=== PATIENT | female | born 1950 | race Caucasian/White ===

== ENCOUNTER → 2017-10-27 08:23 | Outpatient (CLI) | payer MEDICARE, SELFPAY ==
[2017-10-27 09:52] LABS: Alanine Aminotransferase 25 U/L (12-78); Albumin Level 3.6 gm/dL (3.4-5.0); Albumin/Globulin Ratio 1.2 (1.1-1.8); Alkaline Phosphatase 48 U/L (46-116); Anion Gap 13.3 mEq/L (5-15); Aspartate Amino Transferase 24 U/L (15-37); Bilirubin,Total 0.5 mg/dL (0.2-1.0); Blood Urea Nitrogen 21 mg/dL (7-18); Calcium 8.8 mg/dL (8.5-10.1); Carbon Dioxide 26 mmol/L (21.0-32.0); Chloride 106 mmol/L (98-107); Creatinine,Serum 0.82 mg/dL (0.55-1.02); Estimated Glomerular Filt Rate 69 ml/min (>60); GFR (African American) 84 ML/MIN (>60); Glucose 94 mg/dL (74-106); Potassium 4.3 mmoL/L (3.5-5.1); Sodium 141 mmol/L (136-145); Thyroid Stimulating Hormone 2.49 uIU/ml (0.358-3.740); Total Protein,Serum 6.6 gm/dL (6.4-8.2)
== END ==
PROVIDERS: Visit Provider Nurse Practitioner Family
DX: E03.9 Hypothyroidism, unspecified (principal); E78.5 Hyperlipidemia, unspecified
CPT/HCPCS: 36415; 80053; 84439; 84443

== ENCOUNTER → 2017-11-01 09:21 | Outpatient (CLI) | payer MEDICARE, SELFPAY ==
--- NOTE | 2017-11-01 09:29 | US_ITS ---
US soft tissue head and neck CLINICAL INDICATION: Left-sided neck mass ITS.REASON: NECK MASS ORDERING PHYSICIAN: William Tapia MD PATIENT AGE: 67 years Comparison: None FINDINGS: Shunt performed of the palpable abnormality in the left side of the neck. This corresponds to the carotid artery. Cannot determine if the artery is aneurysmal based on images submitted. CT angiogram of the neck may be of further value if clinically warranted. Incidental note made of a 6 mm mixed hypoechoic nodule in the left lobe of the thyroid gland. A 7 mm mixed hypoechoic nodules present on the right. IMPRESSION: 1. Palpable abnormality of the left neck corresponds to the carotid artery. Cannot determine if the artery is aneurysmal base images submitted. ET angiogram may be of further value if clinically warranted. 2. Small bilateral thyroid nodules
--- NOTE | 2017-11-01 09:29 | MM_ITS ---
MM Dig screening mamm BI w/CAD CAD Screening ORDERING PHYSICIAN : William Tapia MD PATIENT AGE: 67 years GENDER: Female COMPARISON: Previous mammograms: October 2016, April 2015, March INDICATION: No hormones. No new complaints. Noncontributory family history. 67-year-old TECHNIQUE: Standard CC and MLO images were obtained. R2 CAD reviewed. FINDINGS: Prior films are very helpful in this patient again showing the separate islands of fibroglandular tissue at the deep axillary right and left breast but these is been present on multiple studies even those dating back to 2010 . Asymmetric breast parenchymal pattern but no significant new areas of concern RIGHT BREAST:No significant new findings. Again the dense glandular tissue the retroareolar region with a separate island breast parenchymal tissue towards the deep right axillary tail right breast is seen and unchanged. Scattered areas of stable density appear stable as well. LEFT BREAST:No significant new findings. Again similar architectural pattern with a smaller island of glandular tissue at the superior left breast 12:00 unchanged as prior studies. IMPRESSION: -- Stable bilateral mammogram. Bilateral follow-up in one year Asymmetric areas of breast density appear long-standing stable. BI-RADS Category: 2 Benign Finding(s) RECOMMENDED FOLLOW-UP: 1YR - 1 YEAR FOLLOW-UP (A letter has been sent to the patient regarding results of the study.)
--- NOTE | 2017-11-01 09:30 | XR_ITS ---
XR DEXA axial skeleton HISTORY: ITS.REASON: OSTEOPAROSIS ORDERING PHYSICIAN: William Tapia MD PATIENT AGE: 67 years FINDINGS: The BMD measured at the left femoral neck is 0.701 g/cm squared with a T score of -2.4. This is considered Osteopenic according to the World Health Organization criteria. Fracture risk is Moderate. Treatment is advised.. The L1 L4 density as a T score -1.8. Bone density lumbar spine is unchanged and the density of the hips has increased by 4.5% compared 12/15/2015. 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 Treatment recommended. Suggest follow-up exam October 2018
== END ==
PROVIDERS: Family Provider Family Medicine; PCP Nurse Practitioner Family; Visit Provider Family Medicine
DX: Z12.31 Encounter for screening mammogram for malignant neoplasm of breast (principal); M81.0 Age-related osteoporosis without current pathological fracture
CPT/HCPCS: 76536; 77067; 77080

== ENCOUNTER 2017-11-16 09:20 | Outpatient (CLI) | payer MEDICARE, SELFPAY ==
[2017-11-16 09:45] VITALS: BP 129/52; PULSE 85; RESP 18; O2SAT 100
== END 2017-11-16 10:10 | disposition home or self-care (01) ==
LOC: INF 09:31
PROVIDERS: Family Provider Family Medicine; PCP Nurse Practitioner Family; Visit Provider Family Medicine
DX: M81.0 Age-related osteoporosis without current pathological fracture (principal)
CPT/HCPCS: 96372; J0897

== ENCOUNTER → 2017-11-24 07:14 | Outpatient (CLI) | payer MEDICARE, SELFPAY ==
[2017-11-24 09:22] LABS: Blood Urea Nitrogen 19 mg/dL (7-18); Creatinine,Serum 0.78 mg/dL (0.55-1.02); Estimated Glomerular Filt Rate 73 ml/min (>60); GFR (African American) 89 ML/MIN (>60)
== END ==
PROVIDERS: Visit Provider Nurse Practitioner Family
DX: E03.9 Hypothyroidism, unspecified (principal); E78.5 Hyperlipidemia, unspecified
CPT/HCPCS: 36415; 82565; 84520

== ENCOUNTER → 2017-11-28 12:35 | Outpatient (CLI) | payer MEDICARE, SELFPAY ==
--- NOTE | 2017-11-28 12:40 | CT_ITS ---
CT angio neck INDICATION: Palpable abnormality in the left neck, abnormal ultrasound showing possible aneurysm or vascular abnormality ITS.REASON: ANEURYSM OF CAROTID ARTERY ORDERING PHYSICIAN: William Tapia MD PATIENT AGE: 67 years COMPARISON: 11/01/2017 TECHNIQUE: CT angiogram protocol performed Axial images are obtained following the intravenous administration of 100 mL Isovue-370 . Sagittal and coronal reformatted images are reviewed as well. All CT scans at the facility use one or more dose reduction, viz: automated exposure control; ma/kV adjustment per patient size (including targeted exams where dose is matched to indication; i.e. head); or iterative reconstruction technique. FINDINGS: There is no evidence of carotid aneurysm or dissection. There is some tortuosity of the left carotid at the bifurcation and of the proximal internal carotid artery . There is lateral positioning of the left jugular vein adjacent to the tortuous carotid which could also account for the sonographic abnormality.. There is also mild prominence of the left external jugular vein which could also account for the sonographic adenopathy. However, no carotid aneurysm is evident. No soft tissue mass. No adenopathy. Prominent artifact is present from the patient's dental work. No carotid stenosis. IMPRESSION: 1. No evidence of carotid artery aneurysm. 2. There is tortuosity of the left carotid bifurcation and proximal internal carotid artery with lateral positioning of the internal jugular vein in relationship to the carotid and prominent left external jugular vein. All these findings may contribute to the abnormality noted on the ultrasound. 3. No adenopathy or neck mass apparent IMPRESSION:
== END ==
PROVIDERS: Family Provider Family Medicine; PCP Nurse Practitioner Family; Visit Provider Family Medicine
DX: I72.0 Aneurysm of carotid artery (principal)
CPT/HCPCS: 70498; Q9967

== ENCOUNTER 2018-05-28 08:02 | Outpatient (CLI) | payer MEDICARE, SELFPAY ==
[2018-05-28 08:21] VITALS: BP 121/60; PULSE 106; RESP 20
== END 2018-05-28 08:44 | disposition home or self-care (01) ==
LOC: INF 08:03
PROVIDERS: PCP Family Medicine; Visit Provider Nurse Practitioner Family
DX: M81.0 Age-related osteoporosis without current pathological fracture (principal)
CPT/HCPCS: 96372; J0897

== ENCOUNTER → 2018-09-05 09:51 | Outpatient (CLI) | payer MEDICARE, SELFPAY ==
--- NOTE | 2018-09-05 10:02 | PC.NURSE ---
spoke with patient at md request and asked her to call him at the office this morning.
== END ==
PROVIDERS: PCP Family Medicine; Visit Provider Physician Assistant
DX: R00.2 Palpitations (principal)
CPT/HCPCS: 93225; 93226

== ENCOUNTER → 2018-09-11 06:10 | Outpatient (CLI) | payer MEDICARE, SELFPAY ==
--- NOTE | 2018-09-11 06:17 | NM_ITS ---
SPECT MYOCARDIAL PERFUSION SCAN, REST AND STRESS: EXERCISE STRESS: [facility] REVIEW QGS EF AND WALL MOTION EVALUATION: QPS - PERFUSION EVALUATION: HISTORY: CHEST HEAVINESS, PALPITATIONS PROCEDURE: Rest imaging performed after administration of10.12 millicuries Tc MIBI. Dose administered at6:30 a.m., with imaging thereafter. Stress imaging was then performed following8 minutes 45 seconds of exercise stress. The patient achieved a heart [id number] with projected heart rate of142 . Resting BP139/76 with stress 142/75. At maximum exercise stress,31.6 millicuries Tc MIBI administered at8:15AM a.m. with minutes thereafter. FINDINGS: Perfusion Evaluation: The single slice spect images as well as the [facility] bull's-eye data summary were reviewed. Wall Motion and Ejection Fraction Evaluation: Gated SPECT review and analysis used to evaluate these features. There is a 69 % left ventricular ejection fraction. There seems to be good wall motion Stress images reveal decreased activity in a portion of the anterior wall while rest images reveal moderate to severely reduced activity in the anterior and apical wall as well as septum IMPRESSION: High risk abnormal stress test with reverse redistribution in the anterior apical and septal with normal ejection fraction normal wall motion
== END ==
PROVIDERS: PCP Family Medicine; Visit Provider Physician Assistant
DX: R07.89 Other chest pain (principal); R00.2 Palpitations
CPT/HCPCS: 78452; 93017; A9502

== ENCOUNTER → 2018-09-14 11:32 | Outpatient (CLI) | payer MEDICARE, SELFPAY ==
--- NOTE | 2018-09-14 11:39 | CT_ITS ---
CT heart w calcium score Ordering Physician: Lazaro Marie MD Patient Age: 68 years: Female HISTORY: ITS.REASON: chest pain COMPARISON: None Technique: All CT scans at this facility use one or more dose reduction techniques, viz.: automated exposure control, ma/kV adjustment per patient size (including targeted exams where dose is matched to indication, i.e. head) or iterative reconstruction technique. FINDINGS: The calcium score data sheet is available for viewing in our PACS system Coronary calcium score is 324 indicating a moderate plaque burden with high cardiovascular disease risk. . Highlights of individual vessel scoring below : . Left Main Coronary artery = 308 LAD scoring = 0 Left circumflex = 16 Right coronary artery = 0 PDA = 0 Limited images submitted of the chest for the calcium score shows no additional significant findings. There are some calcified nodes at the mediastinum and left blaze from old renal this disease. Ascending aorta measures normal size 3.3 cm diameter ========IMPRESSION: TOTAL CALCIUM SCORE 324. (would note that that of this total score the left main coronary artery score = 308)
== END ==
PROVIDERS: PCP Family Medicine; Visit Provider Internal Medicine Cardiovascular Disease
DX: E78.5 Hyperlipidemia, unspecified (principal); I20.9 Angina pectoris, unspecified; K21.9 Gastro-esophageal reflux disease without esophagitis; Q21.1 Atrial septal defect; R00.2 Palpitations; R06.83 Snoring; R94.30 Abnormal result of cardiovascular function study, unspecified
CPT/HCPCS: 75571

== ENCOUNTER → 2018-09-26 12:35 | Outpatient (CLI) | payer MEDICARE, SELFPAY | PROVIDERS: PCP Family Medicine; Visit Provider Internal Medicine Cardiovascular Disease | DX: R00.2 Palpitations (principal) | CPT/HCPCS: 93306 ==

== ENCOUNTER 2018-11-27 08:18 | Outpatient (CLI) | payer MEDICARE, SELFPAY ==
--- NOTE | 2018-11-27 08:22 | MM_ITS ---
MM Dig screening mamm BI w/CAD ORDERING PHYSICIAN : William Tapia MD PATIENT AGE: 68 years GENDER: Female COMPARISON: Multiple prior studies utilized: January 2011, February 2012, December 2009. More recent studies October 2017, 2016, March 2014 INDICATION: Routine screening mammogram no hormones no new complaints noncontributory family history. TECHNIQUE: Standard CC and MLO images were obtained. R2 CAD reviewed. Also right axillary cc view included FINDINGS: . The breasts demonstrate asymmetry with islands of asymmetric heterogeneous glandular elements. The multiple prior studies are helpful to supporting stability of this pattern. Mammography of decreased sensitivity in the areas of denser breast tissue in the retroareolar regions bilaterally. However this pattern is remain stable and I see no change since previous studies RIGHT BREAST:No significant new areas of concern. Again the separate island of glandular tissue at the deep axillary tail the right breast is noted is a long-standing stable feature dating back to at least 2009 The moderately dense breast tissue the retroareolar region extending towards upper-outer quadrant shows no significant new findings and appear stable LEFT BREAST:No significant new areas of concern. Again the smaller island of glandular tissue new 12 o'clock position is observed and is not changed appreciably since multiple previous studies. No new areas of concern on the left here or elsewhere- Moderately dense fibroglandular elements retroareolar region unchanged. IMPRESSION: .......... Stable mammogram No new areas of significant concern. Stable asymmetric breast pattern Included stable islands of asymmetric breast tissue bilaterally . Bilateral follow-up in one year recommended BI-RADS Category: 2 Benign Finding(s) RECOMMENDED FOLLOW-UP: 1YR 1 YEAR FOLLOW-UP (A letter has been sent to the patient regarding results of the study.)
[2018-11-27 09:10] VITALS: BP 107/64; PULSE 79; RESP 18; TEMP 36.7; O2SAT 97
== END 2018-11-27 09:30 | disposition home or self-care (01) ==
LOC: RAD 08:52 → INF 08:52
PROVIDERS: PCP Family Medicine; Visit Provider Family Medicine
DX: Z12.31 Encounter for screening mammogram for malignant neoplasm of breast (principal); M81.0 Age-related osteoporosis without current pathological fracture
CPT/HCPCS: 77067; 96372; J0897

== ENCOUNTER → 2019-03-06 10:28 | Outpatient (CLI) | payer MEDICARE, SELFPAY ==
--- NOTE | 2019-03-06 10:34 | XR_ITS ---
PROCEDURE: XR HIP RT 2-3V W/PELVIS CLINICAL INDICATION: RT HIP PAIN COMPARISON: PELAP PELVIS AP ONLY from 02/26/[id number] abdomen pelvis wo con from 09/05/2018 FINDINGS: There are posttraumatic changes of the right hemipelvis with acetabular protrusion toe and osteoarthritic changes of the right hip. These findings are not significantly changed compared to the previous exam. IMPRESSION: Chronic posttraumatic changes, no acute finding Dictated by: Salvatore Ashton MD 03/06/2019 12:42 Electronically signed by Salvatore Ashton MD in [place] 03/06/2019 12:42
== END ==
PROVIDERS: PCP Family Medicine; Visit Provider Family Medicine
DX: M25.551 Pain in right hip (principal)
CPT/HCPCS: 73502

== ENCOUNTER → 2019-03-14 07:39 | Outpatient (CLI) | payer MEDICARE, SELFPAY ==
[2019-03-14 10:05] LABS: Bilirubin,Direct 0.1 mg/dL (0.0-0.2)
[2019-03-14 10:14] LABS: Alanine Aminotransferase 24 U/L (12-78); Albumin Level 3.6 gm/dL (3.4-5.0); Albumin/Globulin Ratio 1.2 (1.1-1.8); Alkaline Phosphatase 46 U/L (46-116); Anion Gap 12.4 mEq/L (5-15); Aspartate Amino Transferase 19 U/L (15-37); Bilirubin,Total 0.5 mg/dL (0.2-1.0); Blood Urea Nitrogen 16 mg/dL (7-18); Calcium 8.7 mg/dL (8.5-10.1); Carbon Dioxide 29 mmol/L (21.0-32.0); Chloride 105 mmol/L (98-107); Chol/HDL Ratio 2.8 (1-3.5); Cholesterol 253 mg/dL (140-200); Creatinine,Serum 0.72 mg/dL (0.55-1.02); Estimated Glomerular Filt Rate 80 ml/min (>60); GFR (African American) 97 ML/MIN (>60); Globulin 3.1 gm/dl (1.3-3.2); Glucose 89 mg/dL (74-106); HDL Cholesterol 89 mg/dL (29-89); LDL Cholesterol 151 mg/dL (0-130); Potassium 4.4 mmoL/L (3.5-5.1); Sodium 142 mmol/L (136-145); Thyroid Stimulating Hormone 2.12 uIU/ml (0.358-3.740); Total Protein,Serum 6.7 gm/dL (6.4-8.2); Triglycerides 63 mg/dL (30-200); VLDL Cholesterol 13 mg/dL (0-40)
== END ==
PROVIDERS: Internal Medicine Cardiovascular Disease; Visit Provider Nurse Practitioner Family
DX: E78.5 Hyperlipidemia, unspecified (principal)
CPT/HCPCS: 36415; 80053; 80061; 82248; 84443

== ENCOUNTER 2019-05-29 08:00 | Outpatient (CLI) | payer MEDICARE, SELFPAY ==
[2019-05-29 08:25] VITALS: BP 117/76; PULSE 103; RESP 18; O2SAT 96
== END 2019-05-29 08:40 | disposition home or self-care (01) ==
LOC: INF 08:12
PROVIDERS: Visit Provider Nurse Practitioner Family
DX: M81.0 Age-related osteoporosis without current pathological fracture (principal)
CPT/HCPCS: 96372; J0897

== ENCOUNTER → 2019-06-27 08:06 | Outpatient (CLI) | payer MEDICARE, SELFPAY ==
[2019-06-27 09:52] LABS: Alanine Aminotransferase 21 U/L (12-78); Albumin Level 3.6 gm/dL (3.4-5.0); Alkaline Phosphatase 41 U/L (46-116); Aspartate Amino Transferase 22 U/L (15-37); Bilirubin,Direct 0.1 mg/dL (0.0-0.2); Bilirubin,Indirect 0.4 mg/dL (0.0-0.9); Bilirubin,Total 0.5 mg/dL (0.2-1.0); Chol/HDL Ratio 2.6 (1-3.5); Cholesterol 228 mg/dL (140-200); HDL Cholesterol 89 mg/dL (29-89); LDL Cholesterol 130 mg/dL (0-130); Total Protein,Serum 6.5 gm/dL (6.4-8.2); Triglycerides 44 mg/dL (30-200); VLDL Cholesterol 9 mg/dL (0-40)
== END ==
PROVIDERS: Visit Provider Internal Medicine Cardiovascular Disease
DX: I11.9 Hypertensive heart disease without heart failure (principal); I25.10 Atherosclerotic heart disease of native coronary artery without angina pectoris; Z79.899 Other long term (current) drug therapy
CPT/HCPCS: 36415; 80061; 80076

== ENCOUNTER → 2019-11-28 08:49 | Outpatient (CLI) | payer MEDICARE, SELFPAY ==
[2019-11-28 10:43] LABS: Coronavirus 19 IgG Antibody Negative (Negative); Coronavirus 19 IgM Antibody Negative (Negative)
== END ==
PROVIDERS: Visit Provider Internal Medicine Gastroenterology
DX: Z01.818 Encounter for other preprocedural examination (principal)
CPT/HCPCS: 36415; 86328

== ENCOUNTER 2019-11-29 07:24 | Day surgery (SDC) | payer MEDICARE, SELFPAY ==
[2019-11-25 13:10] VITALS: BMI 21.7
[2019-11-29] VITALS (7 sets, daily range): BP systolic 88–150; BP diastolic 51–82; PULSE 73–93; RESP 18; TEMP 36.1–36.8; O2SAT 96–100
--- NOTE | 2019-11-29 08:50 | P.PN_ITS ---
[facility] Anesthesia Checklist - Patient Identification Patient Identification: Arm Band, Verbal (Name & ) - Structural Data Admitted From: Home Planned Operative Procedure/s: Colonoscopy Consent for Planned Operative Procedure(s) Verified: Yes Verified Documents: Surgical Consent, History and Physical - NPO Status Verified Time NPO: 00:00 - Chart Verification Results Verified: None - Additional verifications Anesthesia Reactions: No - Airway Assessment C-Spine Mobility Assessed: Yes TMJ Mobility Assessed: Yes Dentition: Good Dentition - Neurological Assessment Level of Consciousness: Awake, Alert, Appropriate, Follows Commands Hx Seizures: No Numbness or tingling in extremities: No - Anesthesia Plan Anesthesia Risk discussed: Yes Anesthesia Plan: Verified ASA Class: II Anesthesia Type: MAC [facility] History I have reviewed the patient's past medical history: Yes Medical History: Reports:: Coronary Artery Disease, Gastroesophageal Reflux Disease(GERD), Hyperlipidemia, Hypertension, Palpitations Denies:: Cancer, Diabetes Mellitus Type 1, Diabetes Mellitus Type 2, Internal Pacemaker, MRSA, Seizures *Have you ever received a pneumonia vaccine?: Yes *Have you received a flu vaccine this season?: Yes Other Medical History: Reports: Hypothyroidism Anesthesia experience/problems:: no prior complications Laterality Cases: Left: Breast Biopsy Other Surgeries: Yes: Cardiac Catheterization, Cholecystectomy, Hysterectomy- Partial. No: Pacemaker Amputation: No Fractures: No - *Social History Educational Level: Completed College Smoking Status: Never smoker Alcohol Intake: current Alcohol Intake Frequency:: a few times a month Substance Use Type: denies use *Occupational Status:: retired Housing: house Household Members: spouse *Travel in the last 8 weeks: None Family Hx:: No significant family history
--- NOTE | 2019-11-29 08:58 | HMH.PROC ---
[facility] Procedure Note Procedure Note:: Colonoscopy Procedure Report: Colonoscopy with cold snare polypectomy Endoscopist: Ricky Cast II, MD Referring physician: Kristi ALFORD/Noé Tapia MD Date of Procedure: November 29, 2019 Equipment: Olympus 180 variable stiffness pediatric colonoscope Sedation: MAC sedation Indication: Mrs. Romero is a 69-year-old female who is here for follow-up screening/surveillance colonoscopy. She did have a colonoscopy in February 2013 (Dr. Domingo Luke M.D.) at which time a single polyp (4 mm tubular adenoma of descending colon) was removed. She reports no abdominal pain, weight loss, change in her bowel habits or rectal bleeding. She reports no family history of colon cancer. Procedure: Prior to the procedure, a history and physical exam was performed, and patient's medications and allergies were reviewed. The risks, benefits and alternatives of the sedation and procedure were discussed with the patient. All questions were answered and informed consent was obtained. The patient was brought to the procedure room. Patient identification and proposed procedure were verified by the physician and the nurse. The patient was placed in a left lateral decubitus position and the scope was passed under direct vision. Throughout the procedure, the patient's blood pressure, pulse, and oxygen saturations were monitored continuously. The colonoscopy was accomplished without difficulty. The patient tolerated the procedure well. Findings: On digital rectal examination there was normal rectal tone. There were no external hemorrhoids. The colonoscope was introduced through the anal canal to the rectum and advanced to the cecum. The ileocecal valve and appendiceal orifice were identified. The scope was advanced a short distance into the ileum which appeared grossly normal. The scope was then withdrawn into the colon. The cecum was normal. There were 3 colon polyps (ascending x2 (3 and 5 mm) and transverse x1 (4 mm)) that were removed via cold snare polypectomy. There were scattered extensive diverticuli throughout the colon but more predominantly in the descending and sigmoid colon (LEFT colon). The rectum itself was normal. Upon retroflexion within the rectum there were grade 1-2 internal hemorrhoids. The preparation was excellent throughout with [place] Preparation Score of 9. The cecal time was 12 minutes. Impression: 1. Diminutive colonic polyps x3 2. Pandiverticulosis 3. Grade 1-2 internal hemorrhoids Plan: I will follow up the polyp pathology and recommend repeat colonoscopy again in 5-7 years based upon the polyp histology. I would encourage fiber supplementation on a long-term daily maintenance basis.
== END 2019-11-29 09:45 | disposition home or self-care (01) ==
LOC: OUTP 07:25
PROVIDERS: PCP Nurse Practitioner Family; Visit Provider Internal Medicine Gastroenterology
PROC: 0DJD8ZZ Inspection of Lower Intestinal Tract, Via Natural or Artificial Opening Endoscopic (ICD-10-PCS; CPT 45378; principal; 2019-11-29 08:30)
DX: Z12.11 Encounter for screening for malignant neoplasm of colon (principal); Z86.010 Personal history of colon polyps; K63.5 Polyp of colon; K57.30 Diverticulosis of large intestine without perforation or abscess without bleeding; K64.0 First degree hemorrhoids; I10 Essential (primary) hypertension; E78.5 Hyperlipidemia, unspecified; E03.9 Hypothyroidism, unspecified; K21.9 Gastro-esophageal reflux disease without esophagitis; Z90.710 Acquired absence of both cervix and uterus; Z88.8 Allergy status to other drugs, medicaments and biological substances; Z79.899 Other long term (current) drug therapy; Z79.82 Long term (current) use of aspirin
CPT/HCPCS: 45385; 88305

== ENCOUNTER → 2019-12-02 14:20 | Outpatient (CLI) | payer MEDICARE, SELFPAY ==
[2019-12-02 14:11] VITALS: BP 136/79; PULSE 75; RESP 18; TEMP 36.6; O2SAT 96
--- NOTE | 2019-12-02 14:28 | MM_ITS ---
PROCEDURE: MM DIG SCREENING MAMM BI W/CAD Digital Breast Tomosynthesis Included CLINICAL INDICATION: SCREENING There is no personal or family history of breast cancer. There has been a previous biopsy left breast for benign disease. COMPARISON: [facility] DIG MAMM-SCREEN [facility] W/CAD from 10/25/2016 [facility] MM Dig screening mamm BI w/CAD from 11/01/2017 DIG MAMM-SCREEN [facility] from 11/27/2018 TECHNIQUE: Standard CC and MLO images and 3D Tomosynthesis was obtained. R2 CAD reviewed. FINDINGS: Again noted are scattered asymmetric glandular elements in both breasts which appear to be stable in particular the glandular densities in the axillary tail right breast are most prominent but are stable compared to the previous studies. There is a mole marker right breast, there couple of benign-appearing calcifications in the subareolar region as well. The other area of asymmetric glandular tissue is seen deep within the central portion left breast and this is stable as well. There is no suspicious lesion and no suspicious microcalcifications. IMPRESSION: Stable exam with no suspicious lesions seen BI-RAD Category: 2 Benign Finding(s) FOLLOW-UP: 1YR 1 Year Follow-up (A letter has been sent to the patient regarding results of the study.) Dictated by: Dr. Aris Real MD 12/03/2019 14:[address] Aris Real MD in [place] 12/03/2019 14:38
--- NOTE | 2019-12-02 14:29 | XR_ITS ---
PROCEDURE: XR DEXA AXIAL SKELETON CLINICAL HISTORY: OSTEOPOROSIS COMPARISON: No exams were available for comparison FINDINGS: 1/3 radius density is 0.581 grams/centimeters sq with a T-score -1.9 left femoral neck density is 0.613 grams/centimeter sq with a T-score -2.1 L1-L4 density is 0.888 grams/centimeter sq with T-score -1.4 IMPRESSION: Osteopenia with moderate fracture risk. Treatment advised. Suggest follow-up exam in 2 years Dictated by: Salvatore Ashton MD 12/02/2019 19:21 Electronically signed by Salvatore Ashton MD in [place] 12/02/2019 19:21
== END | disposition home or self-care (01) ==
LOC: INF 14:20
PROVIDERS: PCP Family Medicine; Visit Provider Nurse Practitioner Family
DX: M81.0 Age-related osteoporosis without current pathological fracture (principal); Z12.31 Encounter for screening mammogram for malignant neoplasm of breast
CPT/HCPCS: 77063; 77067; 77080; 96372; J0897

== ENCOUNTER 2020-06-02 08:35 | Outpatient (CLI) | payer MEDICARE, SELFPAY ==
[2020-06-02 08:46] VITALS: BP 136/67; PULSE 76; RESP 18; TEMP 36.6; O2SAT 99
== END 2020-06-02 09:19 | disposition home or self-care (01) ==
LOC: INF 08:35
PROVIDERS: Visit Provider Nurse Practitioner Family
DX: M81.0 Age-related osteoporosis without current pathological fracture (principal)
CPT/HCPCS: 96372; J0897

== ENCOUNTER → 2020-07-20 09:00 | Outpatient (CLI) | payer MEDICARE, SELFPAY ==
[2020-07-20 09:55] LABS: Alanine Aminotransferase 17 U/L (12-78); Albumin Level 4.7 g/dl (3.5-5.0); Alkaline Phosphatase 52 U/L (38-126); Anion Gap 10.3 mEq/L (5-15); Aspartate Amino Transferase 27 U/L (14-36); Bilirubin,Direct 0.2 mg/dl (0.0-0.4); Bilirubin,Indirect 0.4 mg/dL (0.0-0.9); Bilirubin,Total 0.6 mg/dl (0.2-1.3); Bilirubin,Unconjugated 0.4 mg/dL (0.0-1.1); Blood Urea Nitrogen 18 mg/dl (7-17); Calcium 9.9 mg/dl (8.4-10.2); Carbon Dioxide 32 mmol/L (22.0-30.0); Chloride 104 mmol/L (98-107); Chol/HDL Ratio 2.5 (1-3.5); Cholesterol 241 mg/dl (140-200); Estimated Glomerular Filt Rate 62 ml/min (>60); GFR (African American) 75 ML/MIN (>60); Glucose 109 mg/dl (74-100); HDL Cholesterol 98 mg/dl (40-60); Potassium 4.3 mmoL/L (3.5-5.1); Sodium 142 mmol/L (136-145); Total Protein,Serum 7.8 g/dl (6.3-8.2); Triglycerides 61 mg/dl (30-150); VLDL Cholesterol 12 mg/dL (0-40)
[2020-07-20 10:06] LABS: Direct LDL Cholesterol 114.52 mg/dL (100-129)
== END ==
PROVIDERS: Visit Provider Physician Assistant
DX: E78.2 Mixed hyperlipidemia (principal); I11.9 Hypertensive heart disease without heart failure; I25.10 Atherosclerotic heart disease of native coronary artery without angina pectoris
CPT/HCPCS: 36415; 80048; 80061; 80076

== ENCOUNTER 2020-12-03 09:58 | Outpatient (CLI) | payer MEDICARE, SELFPAY ==
[2020-12-03 10:25] VITALS: BP 129/77; PULSE 71; RESP 17; TEMP 36.8; O2SAT 100
--- NOTE | 2020-12-03 10:37 | MM_ITS ---
PROCEDURE INFORMATION: Exam: MG Screening 3D Mammography Exam date and time: 12/03/2020 10:37 AM Age: 70 years old Clinical indication: Encounter for screening mammogram for malignant neoplasm of breast TECHNIQUE: Imaging protocol: Screening tomosynthesis and 2D mammography including computer-aided detection (CAD) when performed. COMPARISON: 1. MG MM DIG SCREENING MAMM BI W/CAD 12/02/2019 2:51 PM 2. MG DIG MAMM-SCREEN [facility] 11/27/2018 8:33 AM 3. MG [facility] MM Dig screening mamm BI w/CAD 11/01/2017 9:56 AM FINDINGS: MAMMOGRAPHY: Breast composition: The breasts are heterogeneously dense, which may obscure small masses. Mass: No new suspicious masses. Architectural distortion: No suspicious distortion. Postsurgical architectural distortion noted in the anterior lateral left breast, stable. Calcifications: No suspicious calcifications. Asymmetric density: None. Skin thickening: None. Axillary adenopathy: None. IMPRESSION: No mammographic evidence of malignancy. Annual screening is recommended unless otherwise clinically indicated. ASSESSMENT: BI-RADS Category 2: Benign
== END 2020-12-03 10:26 | disposition home or self-care (01) ==
LOC: INF 09:59
PROVIDERS: PCP Nurse Practitioner Family; Visit Provider Nurse Practitioner Family
DX: Z12.31 Encounter for screening mammogram for malignant neoplasm of breast (principal)
CPT/HCPCS: 77063; 77067; 96372; J0897

== ENCOUNTER 2021-06-16 12:43 | Outpatient (CLI) | payer MEDICARE, SELFPAY ==
[2021-06-16 13:15] VITALS: BP 138/76; PULSE 103; RESP 18; TEMP 36.6; O2SAT 96
== END 2021-06-16 13:30 | disposition home or self-care (01) ==
LOC: INF 12:45
PROVIDERS: PCP Nurse Practitioner Family; Visit Provider Family Medicine
DX: M81.0 Age-related osteoporosis without current pathological fracture (principal)
CPT/HCPCS: 96372; J0897

== ENCOUNTER → 2021-07-12 07:01 | Outpatient (CLI) | payer MEDICARE, SELFPAY ==
[2021-07-12 09:03] LABS: Alanine Aminotransferase 49 U/L (12-78); Albumin Level 4.4 g/dl (3.5-5.0); Alkaline Phosphatase 133 U/L (38-126); Aspartate Amino Transferase 49 U/L (14-36); Bilirubin,Indirect 0.7 mg/dL (0.0-0.9); Bilirubin,Total 0.7 mg/dl (0.2-1.3); Bilirubin,Unconjugated 0.6 mg/dL (0.0-1.1); Chol/HDL Ratio 2.2 (1-3.5); Cholesterol 207 mg/dl (140-200); HDL Cholesterol 93 mg/dl (40-60); Total Protein,Serum 6.9 g/dl (6.3-8.2); Triglycerides 52 mg/dl (30-150); VLDL Cholesterol 10 mg/dL (0-40)
[2021-07-12 09:15] LABS: Direct LDL Cholesterol 92.65 mg/dL (100-129)
== END ==
PROVIDERS: PCP Nurse Practitioner Family; Visit Provider Internal Medicine Cardiovascular Disease
DX: E78.2 Mixed hyperlipidemia (principal); I11.9 Hypertensive heart disease without heart failure; I20.9 Angina pectoris, unspecified; R00.2 Palpitations
CPT/HCPCS: 36415; 80061; 80076

== ENCOUNTER → 2021-08-13 14:31 | Outpatient (CLI) | payer MEDICARE, SELFPAY ==
--- NOTE | 2021-08-13 14:36 | XR_ITS ---
FINAL REPORT CLINICAL HISTORY: INJURY OF RIGHT FOOT, INITIAL ENCOUNTER FINDINGS: RIGHT FOOT Three views demonstrate moderate degenerative changes of the first metatarsophalangeal joint. There is a fracture of the proximal fifth metatarsal, may represent a stress fracture which appears subacute. There is hallux valgus deformity. IMPRESSION: Fracture as above. Reviewed, Interpreted and Dictated by Brayan Palmer III, MD Transcribed by Kristi Tompkins Authenticated by Brayan Palmer III, MD on 08/13/2021 03:52:02 PM [facility]
== END ==
PROVIDERS: PCP Family Medicine; Visit Provider Physician Assistant
DX: S99.921A Unspecified injury of right foot, initial encounter (principal)
CPT/HCPCS: 73630

== ENCOUNTER → 2021-09-23 08:06 | Outpatient (CLI) | payer MEDICARE, SELFPAY ==
--- NOTE | 2021-09-23 08:09 | XR_ITS ---
FINAL REPORT CLINICAL HISTORY: right 5th met fracture COMPARISON: August 13, 2021 FINDINGS: 3 weight-bearing views of the right foot were obtained. There is a transverse fracture through the proximal 5th metatarsal. The fracture line is visible. There may be mild progressive healing. There are moderate hypertrophic changes of osteoarthritis at the 1st MTP joint with overlying soft tissue swelling. There is a hallux valgus deformity. IMPRESSION: Proximal 5th metatarsal fracture with possible mild progressive healing. Reviewed, Interpreted and Dictated by Soham Lockett MD Transcribed by Nathanael Santos Authenticated by Soham Lockett MD on 09/23/2021 08:47:[address] [facility]
== END ==
PROVIDERS: PCP Nurse Practitioner Family; Visit Provider Podiatrist
DX: S92.354A Nondisplaced fracture of fifth metatarsal bone, right foot, initial encounter for closed fracture (principal)
CPT/HCPCS: 73630

== ENCOUNTER → 2021-11-02 08:18 | Outpatient (CLI) | payer MEDICARE, SELFPAY ==
--- NOTE | 2021-11-02 08:22 | XR_ITS ---
FINAL REPORT CLINICAL HISTORY: fracture evaluation COMPARISON: September 23, 2021 FINDINGS: RIGHT FOOT Three views were obtained. There is no significant interval change in the appearance of the fracture at the base of the 5th metatarsal. There is no new osseous abnormality. Degenerative disease at the 1st MTP joint is stable. There is no soft tissue abnormality. IMPRESSION: No significant change. Reviewed, Interpreted and Dictated by Mena Davis MD Transcribed by Mihaela Oh Authenticated by Mena Davis MD on 11/02/2021 10:47:[address] [facility]
== END ==
PROVIDERS: PCP Nurse Practitioner Family; Visit Provider Podiatrist
DX: S99.191A Other physeal fracture of right metatarsal, initial encounter for closed fracture (principal)
CPT/HCPCS: 73630

== ENCOUNTER → 2021-12-07 08:33 | Outpatient (CLI) | payer MEDICARE, SELFPAY ==
--- NOTE | 2021-12-07 08:38 | XR_ITS ---
FINAL REPORT CLINICAL HISTORY: fracture evaluation COMPARISON: November 02, 2021 FINDINGS: RIGHT FOOT Three views of the right foot demonstrate a subacute fracture of the proximal 5th metatarsal which is visually stable. No new bony abnormality is identified. There is mild hallux valgus deformity. There is mild to moderate degenerative change of the 1st MTP joint. The soft tissues are unremarkable. IMPRESSION: Visually stable fracture of the proximal 5th metatarsal. Reviewed, Interpreted and Dictated by Brayan Palmer III, MD Transcribed by Mihaela Oh Authenticated and [facility]
== END ==
PROVIDERS: PCP Nurse Practitioner Family; Visit Provider Podiatrist
DX: S99.191A Other physeal fracture of right metatarsal, initial encounter for closed fracture (principal)
CPT/HCPCS: 73630

== ENCOUNTER 2021-12-17 08:10 | Outpatient (CLI) | payer MEDICARE, SELFPAY ==
--- NOTE | 2021-12-17 08:14 | MM_ITS ---
PROCEDURE INFORMATION: Exam: MG Bilateral Screening 3D Mammography Exam date and time: 12/17/2021 8:24 AM Age: 71 years old Clinical indication: Screening examination TECHNIQUE: Imaging protocol: Bilateral Screening tomosynthesis and 2D mammography including computer-aided detection (CAD) when performed. COMPARISON: 1. MG MM DIG SCREENING MAMM BI W/CAD 12/03/2020 10:41 AM 2. MG MM DIG SCREENING MAMM BI W/CAD 12/02/2019 2:51 PM 3. MG DIG MAMM-SCREEN [facility] 11/27/2018 8:33 AM 4. MG [facility] MM Dig screening mamm BI w/CAD 11/01/2017 9:56 AM FINDINGS: MAMMOGRAPHY: Breast composition: The breast is heterogeneously dense, which may obscure small masses. Mass: None. Architectural distortion: No new or suspicious architectural distortion. Calcifications: No new or suspicious calcifications are present Asymmetric density: No new or suspicious asymmetric density is present Skin thickening: None. Axillary adenopathy: None. IMPRESSION: No mammographic evidence of malignancy. Recommend annual screening mammography unless otherwise clinically indicated. ASSESSMENT: BI-RADS category 1: Negative
[2021-12-17 09:00] VITALS: BP 142/78; PULSE 79; RESP 18; O2SAT 99
== END 2021-12-17 09:10 | disposition home or self-care (01) ==
PROVIDERS: PCP Nurse Practitioner Family; Visit Provider Nurse Practitioner Family
DX: Z12.31 Encounter for screening mammogram for malignant neoplasm of breast (principal); M81.0 Age-related osteoporosis without current pathological fracture
CPT/HCPCS: 77063; 77067; 96372; J0897

== ENCOUNTER → 2021-12-22 09:00 | Outpatient (CLI) | payer MEDICARE, SELFPAY ==
--- NOTE | 2021-12-22 09:03 | XR_ITS ---
FINAL REPORT TECHNIQUE: Bone densitometry calculations of the lumbar spine, left forearm and left hip were obtained. CLINICAL HISTORY: . osteoporosis, screening FINDINGS: DEXA BONE DENSITY AXIAL SKELETON Using L1-4, the bone mineral density of the spine is 0.925 g/cm2, corresponding to T-score of -1.1. Classified as osteopenia. Using the left forearm, the bone mineral density of the distal 1/3 is 0.609 g/cm2, corresponding to a T-score of -1.4. Classified as osteopenia. Using the left hip, the bone mineral density of the femoral neck is 0.602 g/cm2, corresponding to a T-score of -2.2. Classified as osteopenia. NOTE: T-score: Standard deviation compared with peak bone mass of young adult mean. *Following the recommendations of the International Society of Bone densitometry, classification of hip BMD is based on the lower of two T-scores; total hip or femoral neck. IMPRESSION: Diminished bone mineral density of the lumbar spine, left forearm and left hip consistent with osteopenia. FRAX not reported: treated for osteoporosis. Reviewed, Interpreted and Dictated by Soham Lockett MD Transcribed by Mihaela Oh Authenticated and [facility]
== END ==
PROVIDERS: PCP Nurse Practitioner Family; Visit Provider Nurse Practitioner Family
DX: M81.0 Age-related osteoporosis without current pathological fracture (principal)
CPT/HCPCS: 77080

== ENCOUNTER → 2022-02-01 08:59 | Outpatient (CLI) | payer MEDICARE, SELFPAY ==
--- NOTE | 2022-02-01 09:02 | XR_ITS ---
FINAL REPORT CLINICAL HISTORY: fracture evaluation COMPARISON: December 07, 2021 FINDINGS: RIGHT FOOT Three views of the right foot were obtained. There is a transverse fracture through the base of the 1st metatarsal. There is overlying periosteal reaction. Compared with the previous exam the fracture line is less visible but remains evident consistent with interval healing. There is a moderate hallux valgus deformity. There are moderate hypertrophic changes at the 1st MTP joint. There is soft tissue swelling medial to the distal 1st metatarsal. IMPRESSION: Transverse fracture through the base of the 1st metatarsal with interval healing. Reviewed, Interpreted and Dictated by Soham Lockett MD Transcribed by Chayo Rich Authenticated and [facility]
== END ==
PROVIDERS: PCP Nurse Practitioner Family; Visit Provider Podiatrist
DX: S99.191A Other physeal fracture of right metatarsal, initial encounter for closed fracture (principal)
CPT/HCPCS: 73630

== ENCOUNTER → 2022-03-15 08:12 | Outpatient (POV) | payer MEDICARE, SELFPAY | PROVIDERS: Visit Provider Dermatology | DX: Z00.00 Encounter for general adult medical examination without abnormal findings (principal) ==

== ENCOUNTER → 2022-04-05 08:04 | Outpatient (CLI) | payer MEDICARE, SELFPAY ==
--- NOTE | 2022-04-05 08:08 | XR_ITS ---
FINAL REPORT CLINICAL HISTORY: R 5th met fx f/u COMPARISON: 02/01/2022 FINDINGS: Right foot Three views were obtained. There is hallux valgus deformity. Mild degenerative changes are present. There is a subacute to chronic proximal 5th metatarsal fracture with partial bony union. Fracture is stable. IMPRESSION: Stable fracture as above. Reviewed, Interpreted and Dictated by Brayan Palmer III, MD Transcribed by Kristi Tompkins Authenticated and [facility]
== END ==
PROVIDERS: PCP Nurse Practitioner Family; Visit Provider Podiatrist
DX: S92.351A Displaced fracture of fifth metatarsal bone, right foot, initial encounter for closed fracture (principal); M85.89 Other specified disorders of bone density and structure, multiple sites
CPT/HCPCS: 36415; 73630; 82306

== ENCOUNTER → 2022-04-14 10:57 | Outpatient (CLI) | payer MEDICARE, SELFPAY ==
--- NOTE | 2022-04-14 10:57 | CT_ITS ---
FINAL REPORT TECHNIQUE: Thin section axial CT images with coronal and sagittal reformats were performed. This study was performed with techniques to keep radiation doses as low as reasonably achievable (ALARA). Individualized dose reduction techniques using automated exposure control or adjustment of mA and/or kV according to the patient''s size were employed. 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 There is no other fracture. There is moderate degenerative change of the 1st MTP with a hallux valgus deformity. There is a 14 mm mass in the posterior distal tibia with some calcifications within it. This likely represents an enchondroma or other nonaggressive mass. 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 Posterior distal tibial mass with some calcifications within it likely represents an enchondroma or other nonaggressive mass. Reviewed, Interpreted and Dictated by Brayan Palmer III, MD Transcribed by Mihaela Oh Authenticated and [facility]
== END ==
PROVIDERS: PCP Nurse Practitioner Family; Visit Provider Podiatrist
DX: M79.671 Pain in right foot (principal); S99.191A Other physeal fracture of right metatarsal, initial encounter for closed fracture; S99.921A Unspecified injury of right foot, initial encounter
CPT/HCPCS: 73700

== ENCOUNTER → 2022-05-03 16:14 | Outpatient (CLI) | payer MEDICARE, SELFPAY | PROVIDERS: PCP Nurse Practitioner Family; Visit Provider Nurse Practitioner Family | DX: R00.2 Palpitations (principal) | CPT/HCPCS: 93225; 93226 ==

== ENCOUNTER → 2022-07-05 08:11 | Outpatient (CLI) | payer MEDICARE, SELFPAY ==
--- NOTE | 2022-07-05 08:23 | XR_ITS ---
FINAL REPORT CLINICAL HISTORY: foot pain COMPARISON: 04/14/2022 FINDINGS: Right foot Three views were obtained. There is partial bony union of the transverse fracture of the 5th metatarsal. There is no evidence of displacement. There is severe hallux valgus deformity. There are moderate degenerative changes of the 1st metatarsophalangeal joint. 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 Reviewed, Interpreted and Dictated by Kristina Sim MD Transcribed by Kristi Tompkins Authenticated and [facility]
[2022-07-05 09:22] VITALS: BP 121/80; PULSE 88; RESP 18; O2SAT 100
[2022-07-13 15:26] LABS: 1,25 Dihydroxy Vitamin D 59 pg/mL (.); 1,25-Dihydroxy, Vitamin D-2 <10 pg/mL (.); 1,25-Dihydroxy, Vitamin D-3 59 pg/mL (.)
== END ==
PROVIDERS: Podiatrist; PCP Nurse Practitioner Family; Visit Provider Family Medicine
DX: M79.671 Pain in right foot (principal); S99.921A Unspecified injury of right foot, initial encounter; S99.191A Other physeal fracture of right metatarsal, initial encounter for closed fracture; M81.0 Age-related osteoporosis without current pathological fracture
CPT/HCPCS: 36415; 73630; 82652; 96372; J0897

== ENCOUNTER 2023-01-03 07:45 | Outpatient (CLI) | payer MEDICARE, SELFPAY ==
--- NOTE | 2023-01-03 07:48 | MM_ITS ---
PROCEDURE INFORMATION: Exam: MG Bilateral Screening 3D Mammography Exam date and time: 01/03/2023 7:53 AM Age: 72 years old Clinical indication: Screening examination; No personal or family history of breast cancer TECHNIQUE: Imaging protocol: Bilateral Screening tomosynthesis and 2D mammography including computer-aided detection (CAD) when performed. COMPARISON: 1. MG MM DIG SCREENING MAMM BI W/CAD 12/17/2021 8:24 AM 2. MG MM DIG SCREENING MAMM BI W/CAD 12/03/2020 10:41 AM FINDINGS: MAMMOGRAPHY: Breast composition: There are scattered areas of fibroglandular density. Mass: None. Architectural distortion: None. Calcifications: No suspicious calcifications. Asymmetric density: None. Skin thickening: None. Axillary adenopathy: None. IMPRESSION: No mammographic evidence of malignancy. Annual screening is recommended unless otherwise clinically indicated. ASSESSMENT: BI-RADS Category 1: Negative
[2023-01-03 08:34] VITALS: BP 134/72; PULSE 100; RESP 20; TEMP 36.7; O2SAT 98
== END 2023-01-03 08:52 | disposition home or self-care (01) ==
PROVIDERS: PCP Nurse Practitioner Family; Visit Provider Nurse Practitioner Family
DX: Z12.31 Encounter for screening mammogram for malignant neoplasm of breast (principal); M81.0 Age-related osteoporosis without current pathological fracture
CPT/HCPCS: 77063; 77067; 96372; J0897